=== PATIENT | male | born 1950 | race Hispanic/Latino ===

== ENCOUNTER 2016-12-12 16:39 | Observation (INO) | payer MEDICARE ==
[2016-12-12] MEDS ORDERED: TDAP Vaccine 0.5 mL Syr IM ONE (17:34)
--- NOTE | 2016-12-12 17:41 | ED PDOC ---
Arrival/HPI <Uday Putnam - Last Filed: 12/12/16 22:29> <Saige Roe - Last Filed: 12/13/16 00:52> - General Chief Complaint: Alcohol Ingestion Time Seen by Provider: 12/12/16 17:33 - History of Present Illness Narrative History of Present Illness (Text): 12/12/16 17:37 Patient presents with slurring of speech and alcohol on breath. Admits to drinking throughout the day. Pt denies suicidal or homicidal ideations. Denies any pain, but states he fell before coming to the ER. (Uday Putnam) Past Medical History - Provider Review Nursing Documentation Reviewed: Yes - Cardiac Hx Cardiac Disorders: Yes Hx Hypertension: Yes - Pulmonary Hx Respiratory Disorders: No - Neurological Hx Neurological Disorder: No - HEENT Hx HEENT Disorder: No - Renal Hx Renal Disorder: No - Endocrine/Metabolic Hx Endocrine Disorders: Yes Hx Diabetes Mellitus Type 2: Yes - Hematological/Oncological Hx Blood Disorders: No - Integumentary Hx Dermatological Disorder: No - Musculoskeletal/Rheumatological Hx Musculoskeletal Disorders: No - Gastrointestinal Hx Gastrointestinal Disorders: No - Genitourinary/Gynecological Hx Genitourinary Disorders: No - Psychiatric Hx Psychophysiologic Disorder: No Hx Substance Use: No - Anesthesia Hx Anesthesia: No <Uday Putnam - Last Filed: 12/12/16 22:29> Family/Social History - Physician Review Nursing Documentation Reviewed: Yes Family/Social History: Unknown Family HX Smoking Status: Never Smoked Hx Alcohol Use: Yes Hx Substance Use: No <Uday Putnam - Last Filed: 12/12/16 22:29> Allergies/Home Meds <Uday Putnam - Last Filed: 12/12/16 22:29> <Saige Roe - Last Filed: 12/13/16 00:52> Allergies/Adverse Reactions: Allergies No Known Allergies Allergy (Unverified 12/12/16 17:34) Home Medications: Home Meds Medication Instructions Recorded Confirmed Unobtainable 12/12/16 12/12/16 Review of Systems - Review of Systems Systems not reviewed;Unavailable: Intoxicated <Uday Putnam - Last Filed: 12/12/16 22:29> Physical Exam Vital Signs Reviewed: Yes Temperature: Afebrile Blood Pressure: Normal Pulse: Regular Respiratory Rate: Normal Appearance: Positive for: Well-Appearing Pain Distress: None Mental Status: No: Agitated, Lethargic <Uday Putnam - Last Filed: 12/12/16 22:29> <Saige Roe - Last Filed: 12/13/16 00:52> - Physical Exam Narrative Physical Exam (Text): 12/12/16 17:41 pt in no distress, no airway compromise, breathing without difficulty, good insp /exp effort. No signs of head/torso/extremity trauma. Following commands without difficulty. Head: Present: Atraumatic, Normocephalic. No: Tenderness, Contusion, Swelling, Ecchymosis, Abrasion, Laceration Pupils: Present: PERRL Extroacular Muscles: Present: EOMI Conjunctiva: Present: Normal Mouth: Present: Moist Mucous Membranes Neck: Present: Normal Range of Motion. No: MIDLINE TENDERNESS, Paraspinal Tenderness Respiratory/Chest: Present: Clear to Auscultation, Good Air Exchange. No: Respiratory Distress, Accessory Muscle Use Cardiovascular: Present: Regular Rate and Rhythm, Normal S1, S2. No: Murmurs Abdomen: Present: Normal Bowel Sounds. No: Tenderness, Distention, Peritoneal Signs, Rebound, Guarding Back: Present: Normal Inspection. No: Midline Tenderness, Paraspinal Tenderness Upper Extremity: Present: L. elbow with superficial abrasion, no debris or FB. Full active and passive ROM. No ttp. No visible or palpable deformity. No: Cyanosis, Edema Lower Extremity: Present: Normal Inspection. No: Edema Neurological: Present: GCS=15, CN II-XII Intact Skin: Present: Warm, Dry, Normal Color. No: Rashes Lymphatic: Present: OX3, NI, NC Psychiatric: Present: Alert. No: Agitated (Uday Putnam) Vital Signs Temp Pulse Resp BP Pulse Ox 12/12/16 21:30 76 16 142/87 99 12/12/16 18:34 96 H 20 147/85 98 12/12/16 16:40 99.5 F 95 H 20 140/73 98 - RAD Interpretation Radiology Orders: 12/12/16 17:34 HEAD W/O CONTRAST [CT] Stat - Medication Orders Current Medication Orders: Discontinued Medications Tetanus/Reduced Diphtheria/Acell Pertussis (Boostrix Vaccine Inj) 0.5 ml IM .ONCE ONE Stop: 12/12/16 17:35 Last Admin: 12/12/16 17:59 Dose: 0.5 ml LAVONNE Immunization Data Document 12/12/16 17:59 CNR (Rec: 12/12/16 18:04 CNR [id number]) Immunization Data Vaccine Lot Number [id number] Site Given Left Deltoid ED OBSERVATION Date of observation admission: 12/12/16 Time of observation admission: 17:37 <Uday Putnam - Last Filed: 12/12/16 22:29> Discharge: Yes <Saige Roe - Last Filed: 12/13/16 00:52> - Observation admission statement Patient is being placed in observation because:: alcohol intoxication (Uday Putnam) - Goals of Observation Goals of observation are:: pending sobriety (Uday Putnam) - Progress Note Progress Note: 12/12/16 17:42 patient brought in for alcohol intoxication. states he also fell. CT and xray ordered. pt in no distress pending sobriety 12/12/16 20:19 pt in no distress, resting comf. in bed dw Dr. Cowan, pt's PMD. Confirms he has a hx of a. fib on coumadin [facility] CT head shows no obvious bleed, but motion artifact. repeat CT ordered pt with no focal neurological deficits 12/12/16 22:29 patient signed out to Dr. Roe in stable condition, pending repeat CT, sobriety , reeval, dispo pt resting comfortably in bed in no distress (Uday Putnam) 12/12/16 22:29 Patient signed out to in by Dr. Putnam. Pending repeat CT, sobriety, reeval, dispo. 12/12/16 23:[address] - patient resting comfortably. 12/13/16 00:47 CT Head Without Intravenous Contrast: Creator : ASHLY CERON FINDINGS: Brain: There is abnormal density lateral to the right cavernous sinus measuring 1.3 x 0.9 cm. This may be due to ectasia of the cavernous right internal carotid artery, although an extra-axial mass is also considered. This is visualized on series 2 image 13. There are scattered foci of hypodensity within the cerebral white matter, likely representing small vessel ischemic disease in a patient this age. The acuity of the white matter disease is indeterminate. The white-gerber differentiation is preserved demonstrating no acute territorial type infarct. There is mild prominence of the ventricles and sulci, compatible with atrophy. No acute intracranial hemorrhage is seen. Midline shift: There is no midline shift. Ventricles: See above. Bones/joints: The nasal bones are fractured. The calvarium demonstrates no evidence for a depressed fracture. Soft tissues: There is soft tissue swelling of the left posterior scalp. Vasculature: There is atherosclerotic calcification of the cavernous internal carotid arteries. Sinuses: Unremarkable as visualized. No acute sinusitis. Mastoid air cells: No mastoid effusion. IMPRESSION: 1. There is soft tissue swelling of the left posterior scalp. 2. No acute intracranial hemorrhage or acute territorial type infarct. 3. There is abnormal density lateral to the right cavernous sinus measuring 1.3 x 0.9 cm. This may be due to ectasia of the cavernous right internal carotid artery, although an extra-axial mass is also considered. This can be further evaluated with MRI with/without contrast. 4. There are scattered foci of hypodensity within the cerebral white matter, likely representing small vessel ischemic disease in a patient this age. 5. Mild atrophy. 6. The nasal bones are fractured. Clinical correlation is recommended. 12/13/16 00:[address] is negative - patient is fully sober with normal speech and gait and ready for discharge. Patient was informed of abnormal density lateral to the right cavernous sinus and needing MRI to be arranged by pmd. 12/13/16 00:50 Ok for d/c. (Saige Roe) Disposition/Present on Arrival - Present on Arrival Any Indicators Present on Arrival: No History of DVT/PE: No History of Uncontrolled Diabetes: No Urinary Catheter: No History of Decub. Ulcer: No History Surgical Site Infection Following: None - Disposition Have Diagnosis and Disposition been Completed?: Yes Disposition Time: 17:36 Patient Plan: Observation <Uday Putnam - Last Filed: 12/12/16 22:29> - Disposition Have Diagnosis and Disposition been Completed?: Yes Patient Plan: Observation <Saige Roe - Last Filed: 12/13/16 00:52> - Disposition Diagnosis: Alcohol intoxication, Minor head injury Patient Problems: Current Active Problems Problem Status Onset Alcohol intoxication Acute Minor head injury Acute Condition: STABLE
[2016-12-12 18:12] LABS: BASO # 0.03 K/mm3 (0.0-2.0); BASO % 0.4 % (0.0-3.0); EOS % 0.6 % (1.5-5.0); GRAN # 3.17 (1.4-6.5); GRAN % 45.4 % (50.0-68.0); HEMATOCRIT 42.6 % (42.0-52.0); LYMPH % 43.1 % (22.0-35.0); MEAN CELL VOLUME 92.4 fl (80.0-105.0); MEAN CORPUSCULAR HEMOGLOBIN 33.2 pg (25.0-35.0); MEAN CORPUSCULAR HGB CONC 35.9 g/dl (31.0-37.0); MEAN PLATELET VOLUME 9.9 fl (7.0-11.0); MONO # 0.7 (0.1-0.6); MONO % 10.5 % (1.0-6.0); RED CELL DISTRIBUTION WIDTH 13.4 % (11.5-14.5)
[2016-12-12 18:20] LABS: ALB/GLOB RATIO 1.4 (1.1-1.8); ALKALINE PHOSPHATASE 76 U/L (38-126); ALT/SGPT 29 U/L (7-56); AST/SGOT 30 U/L (17-59); BILIRUBIN,TOTAL 0.6 mg/dL (0.2-1.3); BLOOD UREA NITROGEN 15 mg/dL (7-21); CARBON DIOXIDE 23 mmol/L (21-33); CHLORIDE 94 mmol/L (98-107); GFR AFRICAN-AMERICAN > 60; GLUCOSE,RANDOM 113 mg/dL (70-110); POTASSIUM 3.7 mmol/L (3.6-5.0); SODIUM 132 mmol/L (132-148); TOTAL PROTEIN 7.6 g/dL (5.8-8.3)
[2016-12-12 18:36] LABS: INR 1.18 (0.93-1.08)
--- NOTE | 2016-12-12 19:56 | CT ---
EXAM: CT Head Without Intravenous Contrast EXAM DATE/TIME: 12/12/2016 5:34 PM CLINICAL HISTORY: The patient age is 66 years old and is male; Injury or trauma; Fall; Initial encounter; Concussion / head injury; Additional info: ETOH, fall Facility exam id and description: Ct heads head w/o contrast TECHNIQUE: Axial computed tomography images of the head/brain without intravenous contrast. All CT scans at this facility use one or more dose reduction techniques, viz.: automated exposure control; ma/kV adjustment per patient size (including targeted exams where dose is matched to indication; i.e. head); or iterative reconstruction technique. COMPARISON: No relevant prior studies available. FINDINGS: Artifacts: Motion artifact limits this study. Brain: Evaluation for intracranial hemorrhage is limited by motion artifact, although no subdural hemorrhage is visualized. There are scattered foci of hypodensity within the cerebral white matter, likely representing small vessel ischemic disease in a patient this age. The acuity of the white matter disease is indeterminate. Aside from the artifact, the white-gerber differentiation is preserved demonstrating no acute territorial type infarct. There is prominence of the ventricles and sulci, compatible with atrophy. No acute intracranial hemorrhage is seen. Midline shift: There is no midline shift. Ventricles: See above. Bones/joints: The nasal bones are fractured. The calvarium demonstrates no evidence for a depressed fracture. Soft tissues: There is soft tissue swelling of the left posterior superior scalp. Vasculature: There is atherosclerotic calcification of the cavernous internal carotid arteries and distal vertebral arteries. Sinuses: Unremarkable as visualized. No acute sinusitis. Mastoid air cells: No mastoid effusion. IMPRESSION: 1. Evaluation for intracranial hemorrhage is limited by motion artifact, although no subdural hemorrhage is visualized. Repeat CT images are recommended. 2. There is soft tissue swelling of the left posterior superior scalp. 3. Although limited by artifact, there is no definitive acute territorial type infarct. 4. There are scattered foci of hypodensity within the cerebral white matter, likely representing small vessel ischemic disease in a patient this age. 5. Atrophy. 6. The nasal bones are fractured. Clinical correlation and possible facial CT are recommended.
[2016-12-13 00:05] VITALS: RESP 16; O2SAT 99
--- NOTE | 2016-12-13 00:25 | CT ---
EXAM: CT Head Without Intravenous Contrast EXAM DATE/TIME: 12/12/2016 8:09 PM CLINICAL HISTORY: The patient age is 66 years old and is male; Screening exam; Patient HX: Repeat scan; Additional info: Fall, ETOH Facility exam id and description: Ct heads head w/o contrast TECHNIQUE: Axial computed tomography images of the head/brain without intravenous contrast. All CT scans at this facility use one or more dose reduction techniques, viz.: automated exposure control; ma/kV adjustment per patient size (including targeted exams where dose is matched to indication; i.e. head); or iterative reconstruction technique. COMPARISON: CT - HEAD W/O CONTRAST 12/12/2016 6:45:39 PM FINDINGS: Brain: There is abnormal density lateral to the right cavernous sinus measuring 1.3 x 0.9 cm. This may be due to ectasia of the cavernous right internal carotid artery, although an extra-axial mass is also considered. This is visualized on series 2 image 13. There are scattered foci of hypodensity within the cerebral white matter, likely representing small vessel ischemic disease in a patient this age. The acuity of the white matter disease is indeterminate. The white-gerber differentiation is preserved demonstrating no acute territorial type infarct. There is mild prominence of the ventricles and sulci, compatible with atrophy. No acute intracranial hemorrhage is seen. Midline shift: There is no midline shift. Ventricles: See above. Bones/joints: The nasal bones are fractured. The calvarium demonstrates no evidence for a depressed fracture. Soft tissues: There is soft tissue swelling of the left posterior scalp. Vasculature: There is atherosclerotic calcification of the cavernous internal carotid arteries. Sinuses: Unremarkable as visualized. No acute sinusitis. Mastoid air cells: No mastoid effusion. IMPRESSION: 1. There is soft tissue swelling of the left posterior scalp. 2. No acute intracranial hemorrhage or acute territorial type infarct. 3. There is abnormal density lateral to the right cavernous sinus measuring 1.3 x 0.9 cm. This may be due to ectasia of the cavernous right internal carotid artery, although an extra-axial mass is also considered. This can be further evaluated with MRI with/without contrast. 4. There are scattered foci of hypodensity within the cerebral white matter, likely representing small vessel ischemic disease in a patient this age. 5. Mild atrophy. 6. The nasal bones are fractured. Clinical correlation is recommended.
[2016-12-13 01:02] VITALS: BP 138/85; PULSE 78; TEMP 98.7
--- NOTE | 2016-12-14 01:42 | CARD ---
APPROVED REPORT EKG Measurement Heart [id number] <Conclusion> Atrial fibrillation Low voltage QRS Septal infarct, age undetermined Abnormal ECG
== END 2016-12-13 00:52 | disposition home or self-care (01) ==
LOC: ED 16:39 → EROBSV 17:35
PROVIDERS: ADMIT Emergency Medicine; ATTEND Emergency Medicine
DX: F10.129 Alcohol abuse with intoxication, unspecified (principal); I10 Essential (primary) hypertension; E11.9 Type 2 diabetes mellitus without complications; Z23 Encounter for immunization
CPT/HCPCS: 36415; 70450; 80053; 82948; 85025; 85610; 85730; 90471; 90715; 93005; 99283; G0378